=== PATIENT | female | born 1945 | race Caucasian/White ===

== ENCOUNTER 2017-11-20 12:52 | Outpatient (REF) | payer MEDICARE, SELFPAY ==
[2017-11-20 22:02] LABS: HCT 35.8 % (36.0-46.0); HGB 11.1 g/dL (12.0-15.5); Mean Corpuscular Hemoglobin 28.4 pg (27.0-33.0); Mean Corpuscular Volume 91.6 fL (80-95); Mean Platelet Volume 11.3 fL (8.0-11.0); Platelet Count 311 x1000/uL (130-400); RBC 3.91 m/cumm (4.00-5.20); RBC Distribution Width 14.7 % (11.7-14.6); White Blood Cell Count 7.56 k/cumm (4.4-10.8)
== END 2017-11-20 13:12 ==
LOC: NCHCN 12:52
PROVIDERS: PCP Internal Medicine; Visit Provider Internal Medicine
DX: E11.9 Type 2 diabetes mellitus without complications (principal); D64.9 Anemia, unspecified
CPT/HCPCS: 85027

== ENCOUNTER 2018-02-12 15:40 | Outpatient (REF) | payer MEDICARE, SELFPAY ==
[2018-02-12 22:08] LABS: Iron 58 ug/dL (50-175); Total Iron Binding Capacity 306 ug/dL (250-450); Transferrin Sat 19 % (15-50)
[2018-02-12 22:27] LABS: Vitamin B12 390 pg/mL (193-986)
== END 2018-02-12 16:00 ==
LOC: NCHCN 15:40
PROVIDERS: PCP Internal Medicine; Visit Provider Internal Medicine
DX: D64.9 Anemia, unspecified (principal)
CPT/HCPCS: 82607; 83540; 83550

== ENCOUNTER 2018-10-24 11:26 | Outpatient (REF) | payer MEDICARE, SELFPAY ==
[2018-10-24 21:03] LABS: HCT 37.1 % (36.0-46.0); HGB 11.7 g/dL (12.0-15.5); Mean Corp. HGB Concentration 31.5 g/dL (32.0-36.0); Mean Corpuscular Hemoglobin 28.4 pg (27.0-33.0); Mean Platelet Volume 11.1 fL (8.0-11.0); Platelet Count 304 x1000/uL (130-400); RBC 4.12 m/cumm (4.00-5.20); RBC Distribution Width 14.5 % (11.7-14.6); White Blood Cell Count 6.24 k/cumm (4.4-10.8)
[2018-10-24 21:19] LABS: Anion Gap 8.2 mmol/L (3-11); BUN 9 mg/dL (7-18); CO2 28.8 mmol/L (21.0-32.0); CREATININE 0.76 mg/dL (0.55-1.02); Calcium 8.5 mg/dL (8.5-10.1); Calculated LDL 175 mg/dL; Chloride 103 mmol/L (98-107); Cholesterol 251 mg/dL (50-200); Ferritin 69 ng/mL (8-388); Glucose 115 mg/dL (70-100); HDL Cholesterol 59 mg/dL (40-60); Sodium 140 mmol/L (136-145); Triglyceride 87 mg/dL (30-150)
[2018-10-24 21:22] LABS: Hemoglobin A1C 8.2 % (4.5-6.2)
== END 2018-10-24 11:46 ==
LOC: NCHCN 11:26
PROVIDERS: PCP Internal Medicine; Visit Provider Internal Medicine
DX: D64.9 Anemia, unspecified (principal); E11.9 Type 2 diabetes mellitus without complications; I10 Essential (primary) hypertension
CPT/HCPCS: 80048; 80061; 83721; 85027; 82728; 83036

== ENCOUNTER 2018-10-29 21:51 | Outpatient (REF) | payer MEDICARE, MEDICAID, SELFPAY ==
[2018-10-29 21:32] LABS: COMMENT (LAB VIEW ONLY) 13.29 mg/dL
== END 2018-10-29 22:11 ==
LOC: NCHCN 21:51
PROVIDERS: PCP Internal Medicine; Visit Provider Internal Medicine
DX: I10 Essential (primary) hypertension (principal); E11.9 Type 2 diabetes mellitus without complications
CPT/HCPCS: 82043; 82570

== ENCOUNTER 2019-04-21 13:32 | Outpatient (REF) | payer MEDICARE, MEDICAID, SELFPAY ==
[2019-04-21 22:16] LABS: Calculated LDL 162 mg/dL (<100); Cholesterol 236 mg/dL (<200); HDL Cholesterol 57 mg/dL (40-60); Triglyceride 86 mg/dL (<150)
== END 2019-04-21 13:52 ==
LOC: NCHCN 13:32
PROVIDERS: PCP Internal Medicine; Visit Provider Internal Medicine
DX: E78.5 Hyperlipidemia, unspecified (principal); E11.9 Type 2 diabetes mellitus without complications
CPT/HCPCS: 80061; 83036

== ENCOUNTER 2021-10-24 14:07 | Outpatient (REF) | payer MEDICARE, MEDICAID, SELFPAY ==
[2021-10-24 20:38] LABS: Anion Gap 6.2 mmol/L (3-11); BUN 11 mg/dL (7-18); CO2 30.8 mmol/L (21.0-32.0); CREATININE 0.8 mg/dL (0.55-1.02); Calcium 9.1 mg/dL (8.5-10.1); Chloride 104 mmol/L (98-107); Glucose 117 mg/dL (74-106); Potassium 4.9 mmol/L (3.5-5.1); Sodium 141 mmol/L (136-145)
== END 2021-10-24 14:08 | disposition home or self-care (01) ==
LOC: NCHCN 14:07
PROVIDERS: PCP Internal Medicine; Visit Provider Internal Medicine
DX: I10 Essential (primary) hypertension (principal); E11.9 Type 2 diabetes mellitus without complications
CPT/HCPCS: 80048

== ENCOUNTER 2022-11-01 16:27 | Outpatient (REF) | payer MEDICARE, MEDICAID, SELFPAY ==
[2022-11-01 20:43] LABS: Anion Gap 4.4 mmol/L (3-11); BUN 13 mg/dL (7-18); CO2 30.6 mmol/L (21.0-32.0); CREATININE 0.9 mg/dL (0.55-1.02); Chloride 98 mmol/L (98-107); Estimated GFR 66.26 (mL/min/1.73m2); Glucose 249 mg/dL (74-106); Potassium 3.7 mmol/L (3.5-5.1); Sodium 133 mmol/L (136-145)
[2022-11-01 21:13] LABS: COMMENT (LAB VIEW ONLY) 15.59 mg/dL
== END 2022-11-01 16:28 | disposition home or self-care (01) ==
LOC: NCHCN 16:27
PROVIDERS: PCP Internal Medicine; Visit Provider Family Medicine
DX: I10 Essential (primary) hypertension (principal); E11.9 Type 2 diabetes mellitus without complications
CPT/HCPCS: 80048; 82043; 82570

== ENCOUNTER 2023-12-03 18:33 | Outpatient (REF) | payer MEDICARE, MEDICAID, SELFPAY ==
[2023-12-03 21:27] LABS: Abs Immature Grans 0.02 10^3/uL (0.0-0.06); Absolute Basophil Count 0.04 10^3/uL (0.0-0.2); Absolute Eosinophil Count 0.29 10^3/uL (0.0-0.7); Absolute Lymphocyte Count 1.12 10^3/uL (1.2-3.4); Absolute Monocyte Count 0.65 10^3/uL (0.1-0.8); Basophils % 0.6 %; Eosinophils % 4.4 %; HCT 37.7 % (36.0-46.0); HGB 12.1 g/dL (11.2-15.7); Immature Grans % 0.3 %; Lymphocytes % 16.9 %; MCH 28.2 pg (27.0-33.0); MCHC 32.1 % (32.0-36.0); MCV 88 fL (80-95); MPV 10.8 fL (8.0-11.0); Monocytes % 9.8 %; Platelet Count 283 10^3/uL (130-400); RBC 4.29 10^6/uL (3.93-5.22); RDW 13.8 % (11.7-14.6); RDW-SD 43.9 fL; WBC 6.62 10^3/uL (4.4-10.8)
[2023-12-03 22:21] LABS: ALT 15 U/L (14-59); AST 18 U/L (15-37); Albumin 3.4 g/dL (3.4-5.0); Alkaline Phosphatase 76 U/L (46-116); Anion Gap 4.1 mmol/L (3-11); BUN 17 mg/dL (7-18); Bilirubin, Total 0.24 mg/dL (0.2-1.0); CO2 32.9 mmol/L (21.0-32.0); CREATININE 0.9 mg/dL (0.55-1.02); Calcium 9.4 mg/dL (8.5-10.1); Calculated LDL 148 mg/dL (<100); Chloride 100 mmol/L (98-107); Cholesterol 234 mg/dL (<200); Estimated GFR 65.84 (mL/min/1.73m2); Glucose 200 mg/dL (74-106); HDL Cholesterol 70 mg/dL (40-60); Potassium 4.9 mmol/L (3.5-5.1); Sodium 137 mmol/L (136-145); Total Protein 8.3 g/dL (6.4-8.2); Triglyceride 80 mg/dL (<150)
== END 2023-12-03 18:34 | disposition home or self-care (01) ==
LOC: NCHCN 18:33
PROVIDERS: PCP Internal Medicine; Visit Provider Family Medicine
DX: E78.5 Hyperlipidemia, unspecified (principal)
CPT/HCPCS: 80053; 80061; 84443; 85025

== ENCOUNTER 2024-03-05 22:01 | Outpatient (REF) | payer MEDICARE, SELFPAY, MEDICAID ==
[2024-03-05 21:15] LABS: COMMENT (LAB VIEW ONLY) 18.49 mg/dL; Microalb ug/mg Crea 14.1 ug/mg Cr
== END 2024-03-05 22:02 | disposition home or self-care (01) ==
LOC: NCHCN 22:01
PROVIDERS: PCP Internal Medicine; Visit Provider Family Medicine
DX: E11.9 Type 2 diabetes mellitus without complications (principal)
CPT/HCPCS: 82043; 82570

== ENCOUNTER 2024-07-29 19:07 | Outpatient (REF) | payer MEDICARE, MEDICAID, SELFPAY ==
[2024-07-29 21:30] LABS: Anion Gap 3.2 mmol/L (3-11); BUN 16 mg/dL (7-18); CO2 33.8 mmol/L (21.0-32.0); Calcium 9.6 mg/dL (8.5-10.1); Chloride 103 mmol/L (98-107); Estimated GFR 57.66 (mL/min/1.73m2); Glucose 254 mg/dL (74-106); Potassium 4.1 mmol/L (3.5-5.1); Sodium 140 mmol/L (136-145)
[2024-07-31 10:20] LABS: Lyme Ab w Rflx to Lyme Confirm Negative (Negative)
== END 2024-07-29 19:08 | disposition home or self-care (01) ==
LOC: NCHCN 19:07
PROVIDERS: PCP Internal Medicine; Visit Provider Family Medicine
DX: Z51.81 Encounter for therapeutic drug level monitoring (principal); R53.83 Other fatigue
CPT/HCPCS: 80048; 86618